=== PATIENT | female | born 1955 | race Caucasian/White ===

== ENCOUNTER 2019-04-26 07:43 | Day surgery (SDC) | payer OTHER ==
[~2019-04-26] VITALS: Ht 162.6 cm; Wt 61.7 kg
[~2019-04-26 07:43] MED LIST: DAILY MULTIPLE1 EACH PO; FIBER CHOICE C1.5 GM PO; PROGESTERONE200 MG PO; VITAMIN D5000 UNIT PO
--- NOTE | 2019-04-26 09:57 | NUR ---
04/26/19 0957 Fanny Nicholas 0929 PT ARRIVED TO PACU ON 2L VIA NC, PT WAKES TO TACTILE STIMULI AND DENIES PAIN AND IS REORIENTED TO PACU. PT FALLS EASILY BACK TO SLEEP. 0957 PT SNORING. CO2 36.
--- NOTE | 2019-04-26 10:55 | NUR ---
TO SLEEPY ALLOW TO SLEEP A LITTLE LONGER.
--- NOTE | 2019-04-26 11:47 | NUR ---
1035 STATES SHES READY TO GO HOME. FEELS MUCH BETTER.
--- NOTE | 2019-04-26 18:34 | OR ---
[facility] [address] [place], [place] [address] Signed DATE OF OPERATION: 04/26/2019 SURGEON: Jamel Aguiar MD PREOPERATIVE DIAGNOSES: 1. Personal history of colonic polyps in 2007. 2. Mother and maternal aunt with history of colonic polyps. 3. Internal anal skin tags. POSTOPERATIVE DIAGNOSES: 1. 5 mm cecal polyp. 2. Long redundant left colon with multiple areas of significant angulation. 3. Tiny internal anal skin tags. PROCEDURE PERFORMED: Colonoscopy with hot biopsy. ESTIMATED BLOOD LOSS: None. INDICATIONS: Ivett is a 63-year-old female, who had 6 mm polyp taken out of her mid right colon back in 2007. This was performed in [place], [place]. She has a family history of colonic polyps in her mother and maternal aunt. She had a colonoscopy in 2013 and had 2 tiny internal anal skin tags. In the meantime, she says she is doing great. She has no lower GI complaints. In the office, I gave Ivett and her a booklet on colonoscopy. They are both very familiar with the whole process. I helped them both with previous colonoscopies. They are also very familiar with our bowel prep. We had gone through it line by line. She understands there is risk to the procedure including, but not limited to gas bloating, crampy abdominal pain, bleeding, perforation requiring surgery, and missed diagnosis. She has done well with Versed and fentanyl in the past. However, she often has significant nausea afterwards. Consequently, we gave her Zofran and Phenergan preoperatively. She had expressed understanding and wished to proceed. PROCEDURE NOTE: Ivett was taken into our endoscopy suite and placed in the left lateral decubitus position. She was given 8 mg of Zofran preoperatively along with Phenergan 6.25 mg preoperatively. She was given a total of 8 mg of Versed and 200 mcg of fentanyl to cover the endoscopy. A digital rectal exam had been performed and this was unremarkable. Adult colonoscope was introduced and advanced under direct visualization Electronically Signed By: JAMEL AGUIAR MD 04/26/19 1834 PATIENT NAME: IVETT MUELLER OPERATIVE REPORT DATE OF : 59 REPORT #: [id number] PHYSICIAN: JAMEL AGUIAR MD PCP: ISRAEL MARTINEZ MD REPORT IS CONFIDENTIAL AND NOT TO BE RELEASED WITHOUT AUTHORIZATION [facility] [address] [place], [place] [address] Signed of camera. Ivett is slight build and yet she has a very long redundant left colon. She has multiple angulations not only in the sigmoid colon, but up in the left colon as well. It actually took us a significant amount of time and IV sedation in order to advance the scope to the left colon. We used copious amounts of lubrication. The scope had to be inserted and withdrawn multiple times to get through all these areas of angulation. We had used abdominal compression. We rotated Ivett into the supine position as well. Eventually, we made our way over to the hepatic flexure. The hepatic flexure actually has a double curve and it took a few minutes and eventually down into her cecum itself. Thankfully, her prep was quite good. We could easily see a 5 mm polyp at the base of the cecum and it was easily removed with a hot biopsy forceps. The scope was then slowly withdrawn. We took pictures throughout for photodocumentation. We could actually feel the scope dragging through all these areas as it was withdrawn. We saw no other areas of polyps and/or diverticulosis. The rectum was unremarkable. She had just enough rectum to retroflex the scope and we could see a couple of tiny internal anal skin tags. After this, the gas was suctioned out and the colonoscope removed. Ivett tolerated her procedure quite well. RECOMMENDATIONS: I will see Ivett back in my office in 7 to 14 days to review her results. If she has a recall of that procedure, she could consider monitored anesthesia care with infusion of IV propofol. Jamel Aguiar MD ALB/MODL /[id number] cc: MD Israel Haddad MD Copies: JAMEL AGUIAR MD Electronically Signed By: AJMEL AGUIAR MD 04/26/19 1834 PATIENT NAME: IVETT MUELLER OPERATIVE REPORT DATE OF : 59 REPORT #: [id number] PHYSICIAN: JAMEL AGUIAR MD PCP: ISRAEL MARTINEZ MD REPORT IS CONFIDENTIAL AND NOT TO BE RELEASED WITHOUT AUTHORIZATION [address] [address] Signed ISRAEL MARTINEZ MD ~ Electronically Signed By: JAMEL AGUIAR MD 04/26/19 1834 PATIENT NAME: IVETT MUELLER ILYA OPERATIVE REPORT DATE OF : 59 REPORT #: [id number] PHYSICIAN: JAMEL AGUIAR MD PCP: ISRAEL MARTINEZ MD REPORT IS CONFIDENTIAL AND NOT TO BE RELEASED WITHOUT AUTHORIZATION
--- NOTE | 2019-04-29 14:35 | PATH ---
[facility] [address] [place], [place] [address] Signed SPECIMEN(S): A CECAL POLYP SPECIMEN SOURCE: A. CECAL POLYP CLINICAL HISTORY: History of colon polyps. MICROSCOPIC DESCRIPTION: Histologic sections of all submitted blocks are examined by light microscopy. These findings, together with the gross examination, support the pathologic diagnosis. FINAL PATHOLOGIC DIAGNOSIS: Mucosa, cecum, biopsy: - Tubular adenoma. COMMENT: Marked heat artifact is present, complicating diagnosis. As part of [facility] supervisor type disk quality control program this case has been reviewed by another member of our pathology staff. LJA:glc:C2NR GROSS DESCRIPTION: The specimen, labeled "SW, cecal polyp," is received in formalin and consists of a single 0.3 cm blair tissue fragment. The specimen is entirely submitted in cassette (A1). AM (under the direct supervision of a pathologist) The Gross Description was prepared using a voice recognition system. The report was reviewed for accuracy; however, sound-alike word errors, addition and/or deletions may occur. If there is any question about this report, please contact Client Services. PERFORMING LABORATORY: The technical component was performed by [facility], [address] [place] [id number] (Filling Operator: Georgette Sandoval MD; CLIA# [id number]). [facility] [address] [address] (Filling Operator: Ron Ag MD; CLIA# [id number]). Diagnostician: Ron Ag MD PATIENT NAME: KARTHIK MUELLER PATHOLOGY DATE OF : 59 REPORT #: [id number] PHYSICIAN: MARTA PATHOLOGY PCP: ISRAEL MARTINEZ MD REPORT IS CONFIDENTIAL AND NOT TO BE RELEASED WITHOUT AUTHORIZATION [address] [place], [place] [address] Signed Pathologist Electronically Signed 04/29/2019 Copies: ~ PATIENT NAME: KARTHIK MUELLER PATHOLOGY DATE OF : 59 REPORT #: [id number] PHYSICIAN: MARTA PATHOLOGY PCP: ISRAEL MARTINEZ MD REPORT IS CONFIDENTIAL AND NOT TO BE RELEASED WITHOUT AUTHORIZATION
== END 2019-04-26 11:40 | disposition home or self-care (01) ==
LOC: DS 07:43 → OPS 07:43 → DS 09:00 → OPS 11:40
PROVIDERS: Colon & Rectal Surgery
PROC: 0DBH8ZZ Excision of Cecum, Via Natural or Artificial Opening Endoscopic (ICD-10-PCS; principal; 2019-04-26 09:00)
DX: Z12.11 Encounter for screening for malignant neoplasm of colon (principal); D12.0 Benign neoplasm of cecum; K64.4 Residual hemorrhoidal skin tags; Q43.8 Other specified congenital malformations of intestine; Z83.71 Family history of colonic polyps; Z98.890 Other specified postprocedural states; Z88.0 Allergy status to penicillin; Z86.010 Personal history of colon polyps; Z79.4 Long term (current) use of insulin; Z79.899 Other long term (current) drug therapy
CPT/HCPCS: 99153; G0500; J2250; J2405; J2550; J3010; J7121

== ENCOUNTER 2025-01-07 12:54 | Day surgery (SDC) | payer MEDICARE, OTHER ==
[~2025-01-07] VITALS: Ht 162.6 cm; Wt 59.5 kg
--- NOTE | ~2025-01-07 | OR ---
[facility] [address] [place], [place] [address] Draft DATE OF OPERATION: 01/07/2025 SURGEON: Paul Mccord MD PREOPERATIVE DIAGNOSIS: History of polyps. POSTOPERATIVE DIAGNOSIS: Multiple polyps (six). PROCEDURE: Total colonoscopy to cecum with cold snare polypectomy x4, cold morcellation polypectomy x2. ANESTHESIA: Intravenous sedation; fentanyl 100 mcg and Versed 7 mg. INDICATION: This 69-year-old white woman is a patient of ТАТЬЯНА Daniel. The patient lives in [place]. She has undergone several colonoscopies by Dr. Flores, the last in 2018, showing one polyp. She is recommended to have colonoscopy at this time based on her prior polyp history. She has no family history of colon cancer and no current symptoms of bleeding, diarrhea, or constipation. She does have family history of colon polyps in her mother and maternal aunt. She understands the risk of bleeding, infection, and perforation related to colonoscopy and wished to proceed. FINDINGS: The prep was excellent. Complete colonoscopy was undertaken to the cecum. The colon was long but was traversed completely. There were four polyps in the proximal ascending colon, one at the hepatic flexure and one in the transverse colon. DESCRIPTION OF PROCEDURE: The patient was brought to the endoscopy suite and placed in the lateral decubitus position, given intravenous sedation to the point of slurred speech and nystagmus. Digital rectal examination was normal. An Olympus video colonoscope was passed in the rectum and manipulated throughout the colon noting a small polyp in the transverse colon which was excised with cold snare technique. The scope was then advanced beyond the hepatic flexure, ultimately to the cecum. There were four small polyps not far from each other in the proximal ascending PATIENT NAME: KARTHIK MUELLER OPERATIVE REPORT DATE OF : 59 REPORT #: [id number] PHYSICIAN: PAUL MCCORD MD PCP: DINA TELLEZ REPORT IS CONFIDENTIAL AND NOT TO BE RELEASED WITHOUT AUTHORIZATION [facility] [address] [place] [address] Draft colon. Three were excised with cold snare technique and one with cold morcellation technique. All were placed in the same specimen jar. The scope was withdrawn and another small polyp was noted at the hepatic flexure, which was excised with cold morcellation technique. The scope was further withdrawn and the remaining colon showed no other abnormality. Retroflexed view was normal as well. The scope was removed and the patient was taken to the recovery room in good condition. CONCLUDING DIAGNOSIS: Multiple polyps. PLAN: Recommend repeat colonoscopy in three years, sooner if symptoms should develop. She will return to the ongoing care of ТАТЬЯНА Daniel. MD HEREBRTH Castaneda/JANUSZ /[id number] cc: Dina Tellez Copies: ~ PATIENT NAME: KARTHIK MUELLER OPERATIVE REPORT DATE OF : 59 REPORT #: [id number] PHYSICIAN: PAUL MCCORD MD PCP: DINA TELLEZ REPORT IS CONFIDENTIAL AND NOT TO BE RELEASED WITHOUT AUTHORIZATION
[~2025-01-07 12:54] MED LIST changes: +IBLOOD GLUCOSE TEST STRIP 1 EA TEST VI PRN; +LACTATED RINGER'S 1,000 ML IV SCH; +LIDOCAINE HCL 1% 5 ML SDV INJ ONE; +MIDAZOLAM HCL 5 MG/5 ML VIAL IV PRN; +fentaNYL citrate 100 MCG/2 ML VIAL IV PRN
[2025-01-07 13:10] VITALS: BP 156/69
[2025-01-07] MEDS ORDERED: MAGNESIUM400 MG PO (13:14)
--- NOTE | 2025-01-07 13:34 | NUR ---
WILL COME FOR PT.
[2025-01-07] MEDS ORDERED: MIDAZOLAM HCL 5 MG/5 ML VIAL ONE (13:36)
[2025-01-07] MEDS ORDERED: fentaNYL citrate 100 MCG/2 ML VIAL ONE (13:37)
--- NOTE | 2025-01-07 14:53 | NUR ---
01/07/25 Maricel Aranda OXYGEN SATURATION REMAINS 100% ON 3L VIA NC. OXYGEN IS DISCONTINUED AT THIS TIME.
[2025-01-07 15:13] VITALS: BP 112/63
--- NOTE | 2025-01-09 13:33 | PATH ---
[facility] [address] [facility] [place] [place] [address] Signed SPECIMEN(S): A ASCENDING COLON POLYP SPECIMEN(S): B TRANSVERSE COLON POLYP SPECIMEN(S): C HEPATIC FLEXURE COLON POLYP SPECIMEN SOURCE: A. ASCENDING COLON POLYP B. TRANSVERSE COLON POLYP C. HEPATIC FLEXURE COLON POLYP CLINICAL HISTORY: History of polyps. Post-multiple polyps A) polyps x 4, B/C) polyp FINAL PATHOLOGIC DIAGNOSIS: A. Ascending colon polyp - Fragments of tubular adenoma. B. Transverse colon polyp - Tubular adenoma. C. Hepatic flexure polyp - Fragments of tubular adenoma. AMB MICROSCOPIC EXAMINATION: Histologic sections of all submitted blocks are examined by light microscopy. These findings, together with the gross examination, support the pathologic diagnosis. GROSS DESCRIPTION: A. The specimen, labeled and designated "West, ascending colon polyp," is received in formalin and consists of five blair soft tissue fragments, ranging from 0.1-0.3 cm. Entirely submitted in (A1). B. The specimen, labeled and designated "West, transverse colon polyp," is received in formalin and consists of one blair soft tissue fragment, 0.4 cm. Entirely submitted in (B1). C. The specimen, labeled and designated "West, metaplasia colon polyp," is received in formalin and consists of five blair soft tissue fragments, ranging from 0.1-0.3 cm. Entirely submitted in (C1). AB (under the direct supervision of a pathologist) The Gross Description was prepared using a voice recognition system. The report was reviewed for accuracy; however, sound-alike word errors, addition and/or deletions may occur. If there is any PATIENT NAME: KARTHIK MUELLER PATHOLOGY DATE OF : 59 REPORT #: [id number] PHYSICIAN: MARTA MORROW PCP: LOPEZ ARTIS REPORT IS CONFIDENTIAL AND NOT TO BE RELEASED WITHOUT AUTHORIZATION [facility] [address] [place], [place] [address] Signed question about this report, please contact Client Services. ADDITIONAL NOTES: Immunohistochemical and/or in situ hybridization studies if performed in this case included appropriate positive controls that reacted as expected. This test was developed and its performance characteristics determined by [facility]. It has not been cleared or approved by the U.S. Food and Drug Administration. The FDA has determined that such clearance or approval is not necessary. This test is used for clinical purposes. It should not be regarded as investigational or for research. [facility] is certified under the Clinical Laboratory Improvement Amendments of 1988 (CLIA) as qualified to perform high complexity clinical laboratory testing. PERFORMING LABORATORY: Technical component was performed by [facility], [address] [place] [id number] (CLIA# [id number]). Professional interpretation was performed by [facility] [address] [place] [id number] Diagnostician: Georgette Sandoval MD Pathologist Electronically Signed 01/09/2025 Copies: ~ PATIENT NAME: KARTHIK MUELLER PATHOLOGY DATE OF : 59 REPORT #: [id number] PHYSICIAN: MARTA MORROW PCP: LOPEZ ARTIS REPORT IS CONFIDENTIAL AND NOT TO BE RELEASED WITHOUT AUTHORIZATION
== END 2025-01-07 15:22 | disposition home or self-care (01) ==
LOC: DS 12:54
PROVIDERS: ATTEND Surgery
PROC: 0DBL8ZX Excision of Transverse Colon, Via Natural or Artificial Opening Endoscopic, Diagnostic (ICD-10-PCS; 2025-01-07)
PROC: 0DBK8ZX Excision of Ascending Colon, Via Natural or Artificial Opening Endoscopic, Diagnostic (ICD-10-PCS; principal; 2025-01-07 14:00)
DX: Z12.11 Encounter for screening for malignant neoplasm of colon (principal); D12.2 Benign neoplasm of ascending colon; D12.3 Benign neoplasm of transverse colon; Z86.0100 Personal history of colon polyps, unspecified; Z83.719 Family history of colon polyps, unspecified; Z88.0 Allergy status to penicillin
CPT/HCPCS: 99153; G0500; J2250; J3010; J7121